=== PATIENT | female | born 1995 | race Caucasian/White ===

== ENCOUNTER 2019-11-17 13:12 | Outpatient (CLI) | payer OTHER, MEDICAID, SELFPAY | END 2019-11-17 13:13 | disposition home or self-care (01) | PROVIDERS: PCP Family Medicine Adolescent Medicine; Visit Provider Obstetrics & Gynecology | DX: R10.2 Pelvic and perineal pain (principal) | CPT/HCPCS: 36415; 86850; 86900; 86901 ==

== ENCOUNTER 2019-11-24 00:18 | Outpatient (CLI) | payer OTHER, MEDICAID, SELFPAY ==
[2019-11-24 19:01] LABS: SARS-CoV-2 RNA PCR Negative
== END 2019-11-24 00:19 | disposition home or self-care (01) ==
LOC: ANHCOVIDDT 00:18
PROVIDERS: PCP Family Medicine Adolescent Medicine; Visit Provider Obstetrics & Gynecology
DX: Z01.818 Encounter for other preprocedural examination (principal); Z11.59 Encounter for screening for other viral diseases
CPT/HCPCS: 87635; C9803; U0003

== ENCOUNTER 2019-11-26 02:52 | Day surgery (SDC) | payer OTHER, MEDICAID, SELFPAY ==
[2019-11-11 15:50] VITALS: BMI 32.3
--- NOTE | 2019-11-24 07:40 | PM.IMHP ---
H&P: HPI History of Present Illness Chief complaint: Pelvic Pain, Abnormal Uterine Bleeding Narrative: Leonor Blevins is a 24 year old female who is admitted for diagnostic laparoscopy. She has a known history of endometriosis which was diagnosed 6 years ago laparoscopically. She has been on oral S which has not helped with the typical endometrial complains of pain in irregular bleeding. Risks and benefits of this procedure reviewed including but not exclusive of , aspiration pneumonia, bleeding, transfusion, perforation to bowel, bladder, ureters, or other internal organs. She voiced good understanding. She received the [employer] handout entitled laparoscopy. She asked to proceed Review of Systems Review of Systems: All systems reviewed & are unremarkable except as noted in HPI and below PMFSH Past Medical History Medical History Bilateral ankle fractures Endometriosis Surgical History Surgical History H/O dilation and curettage Family History Family History Other Family history of arthritis Hypertension Social History Social History Smoking status: Never smoker Alcohol intake: never Spiritual care concerns: No Meds Home Medications and Allergies Home Medications Medication Instructions Recorded Confirmed Type elagolix [[place]] 150 mg PO DAILY 11/11/19 11/11/19 History Allergies Allergy/AdvReac Type Severity Reaction Status Date / Time morphine Allergy Severe HIVES Verified 11/11/19 15:52 Penicillins Allergy Severe HIVES Verified 11/11/19 15:52 povidone-iodine Allergy Severe SKIN Verified 11/11/19 15:52 PEELED OFF ; RASH shellfish derived Allergy Severe Anaphylactic Verified 10/25/18 18:58 Shock amoxicillin Allergy Unknown Hives Verified 11/11/19 15:52 Exam Const: General: no acute distress Eyes: General: appearance normal, both eyes and all related structures Neck: Neck: supple and no JVD Thyroid: thyroid normal Resp: Effort & Inspection: normal respiratory effort Auscultation: clear to auscultation bilaterally Cardio: Rate: regular rate Rhythm: regular rhythm GI: Inspection: non-distended GI Palp: Yes Soft to palpation, No Tenderness to palpation present (GI) and No Guarding due to palpation present (GI) Auscultation: normal bowel sounds : General: Yes bladder normal to palpation External Female Exam: normal external appearance Speculum Exam - Vagina: normal vaginal discharge and No vaginal bleeding Speculum Exam - Cervix: nontender Bimanual exam- vagina & uterus: bladder normal to palpation and No Cervical tenderness present OB/external & speculum: No vaginal bleeding Skin: General skin exam: no rashes or lesions noted Extrem: General: normal to inspection and no edema Psych: Mental Status: mental status grossly normal Affect: normal affect Assessment and Plan Additional Plan impression: Pelvic pain with a history of endometriosis Plan: Diagnostic laparoscopy
[2019-11-26] VITALS (11 sets, daily range): BP systolic 99–114; BP diastolic 55–72; PULSE 54–71; RESP 10–20; TEMP 36.1–36.4; O2SAT 95–100; BMI 33.2
--- NOTE | 2019-11-26 06:17 | WPDHPUPDATE1 ---
History and Physical Update Update Date/Time: 11/26/19 06:17 History and Physical has been reviewed, including an updated exam of the patient. There are NO changes in the patient's condition. Risks, benefits, and alternatives have been discussed and questions answered. Patient agrees to proceed with procedure.
[2019-11-26] MEDS: LACTATED RINGERS 1,000 ML 30 ML IV CONT ×2 (10:00→13:00)
[2019-11-26] MEDS: ACETAMINOPHEN 500 MG TABLET 1000 MG PO (10:41)
[2019-11-26] MEDS: KETOROLAC 15 MG/ML VIAL (*BKC) IV PUSH (10:41)
[2019-11-26] MEDS: SCOPOLAMINE 1.5 MG PATCH TRANSDERM (10:45)
--- NOTE | 2019-11-26 10:57 | WPDANESEPPF ---
Anes - Initial Pre Proc Eval Procedure: Operation Date: 11/26/19 11:30 Proposed Procedures p Diagnostic Laparoscopy - Jason Alcaraz MD Date/Time: 11/26/19 10:57 Surgeon: Jason Alcaraz MD Pre Op Diagnosis: Pelvic Pain, Abnormal Uterine Bleeding Patient Data Age: 24 Gender: F Height: 5 ft 4 in Weight: 87.8 kg Last Vital Signs Temp 36.4 C 11/26/19 10:34 Pulse 71 11/26/19 10:34 Resp 20 11/26/19 10:34 BP 114/72 11/26/19 10:34 Pulse Ox 100 11/26/19 10:34 Allergies Allergy/AdvReac Type Severity Reaction Status Date / Time morphine Allergy Severe HIVES Verified 11/26/19 10:32 Penicillins Allergy Severe HIVES Verified 11/26/19 10:32 povidone-iodine Allergy Severe SKIN Verified 11/26/19 10:32 PEELED OFF ; RASH shellfish derived Allergy Severe Anaphylactic Verified 11/26/19 10:32 Shock amoxicillin Allergy Unknown Hives Verified 11/26/19 10:32 Home Medications Medication Instructions Recorded Confirmed Type elagolix [Orilissa] 150 mg PO DAILY 11/11/19 11/26/19 History hydrocodone-acetaminophen [[place]] 1 tablet PO Q4H PRN #20 tablet 11/26/19 Rx Patient hx anesthesia problems: other (motion sickness) Family hx anesthesia problems: none PMFSH Past Medical History Medical History (Updated 11/26/19 @ 10:57 by Zaki Del Cid MD) Bilateral ankle fractures Endometriosis Hx of migraines Surgical History Surgical History H/O dilation and curettage Family History Family History Other Family history of arthritis Hypertension Social History Social History Smoking status: Never smoker Alcohol intake: never Spiritual care concerns: No Anes - Eval Final PreProcedure Day of Procedure 11/26/19 10:57 Patient weight: obese Heart: regular rate and rhythm Lungs: clear to auscultation Airway: Mallampati scale class II Neurological: alert and oriented Last oral intake: >/= 8 hours ASA classification: II Emergent: no Anesthetic plan: proceed Anesthesia type and monitoring: general ETT and standard monitoring Informed Consent: The patient's anesthetic plan and its attendant risks and benefits were discussed with the patient/family/POA. Questions were solicited and answers provided to the satisfaction of the patient/family/POA.
--- NOTE | 2019-11-26 10:58 | WPDANESEPPF ---
Anes - Initial Pre Proc Eval Procedure: Operation Date: 11/26/19 11:30 Proposed Procedures p Diagnostic Laparoscopy - Jason Alcaraz MD Date/Time: 11/26/19 10:58 Surgeon: Jason Alcaraz MD Pre Op Diagnosis: Pelvic Pain, Abnormal Uterine Bleeding Patient Data Age: 24 Gender: F Height: 5 ft 4 in Weight: 87.8 kg Last Vital Signs Temp 36.4 C 11/26/19 10:34 Pulse 71 11/26/19 10:34 Resp 20 11/26/19 10:34 BP 114/72 11/26/19 10:34 Pulse Ox 100 11/26/19 10:34 Allergies Allergy/AdvReac Type Severity Reaction Status Date / Time morphine Allergy Severe HIVES Verified 11/26/19 10:32 Penicillins Allergy Severe HIVES Verified 11/26/19 10:32 povidone-iodine Allergy Severe SKIN Verified 11/26/19 10:32 PEELED OFF ; RASH shellfish derived Allergy Severe Anaphylactic Verified 11/26/19 10:32 Shock amoxicillin Allergy Unknown Hives Verified 11/26/19 10:32 Home Medications Medication Instructions Recorded Confirmed Type elagolix [[place]il[place]] 150 mg PO DAILY 11/11/19 11/26/19 History hydrocodone-acetaminophen [[place]] 1 tablet PO Q4H PRN #20 tablet 11/26/19 Rx Patient hx anesthesia problems: other (motion sickness) Family hx anesthesia problems: none PMFSH Past Medical History Medical History (Updated 11/26/19 @ 10:57 by Zaki Del Cid MD) Bilateral ankle fractures Endometriosis Hx of migraines Surgical History Surgical History H/O dilation and curettage Family History Family History Other Family history of arthritis Hypertension Social History Social History Smoking status: Never smoker Alcohol intake: never Spiritual care concerns: No Anes - Eval Final PreProcedure Day of Procedure 11/26/19 10:58 Patient weight: obese Heart: regular rate and rhythm Lungs: clear to auscultation Airway: Mallampati scale class II Neurological: alert and oriented Last oral intake: >/= 8 hours ASA classification: II Emergent: no Anesthetic plan: proceed Anesthesia type and monitoring: general ETT and standard monitoring Informed Consent: The patient's anesthetic plan and its attendant risks and benefits were discussed with the patient/family/POA. Questions were solicited and answers provided to the satisfaction of the patient/family/POA.
--- NOTE | 2019-11-26 11:46 | PM.PROC ---
Procedure Note - Detailed Date of procedure: 11/26/19 Pre-op diagnosis: Pelvic Pain, Abnormal Uterine Bleeding Surgeon: Jason Alcaraz MD Postop diagnosis: Pelvic pain/ bilateral ovarian cysts Procedure: Laparoscopy /destruction bilateral ovarian cysts Anesthesia: General endotracheal EBL: 5Cc Complications: None Findings: Normal-appearing uterus tubes. Bilateral simple ovarian cysts. Normal-appearing appendix and gallbladder Description of procedure: The patient was prepped and draped in the normal sterile fashion and placed in the dorsal lithotomy position. Under excellent general trach anesthesia weighted speculum placed in the posterior fornix of vagina. Anterior lip of the cervix was grasped with single-tooth tenaculum. The Gross's cannula was inserted to the cervix and attached to the single-tooth to be used later for uterine manipulation. After emptying the bladder of clear urine, the remainder the instruments removed. Gloves were changed. An infra full umbilical cyst incision was made. The Veress needle passed in the abdomen. The abdomen was filled with CO2 gas [id number]. The 5mm trocar was advanced under direct visualization assuring no injury. The patient was placed in Trendelenburg. A suprapubic incision made and the 5mm trocar advanced under direct visualization assuring no injury. The above findings were seen the ovarian cyst were then opened in linear fashion bilaterally with monopolar cautery at 35 w per 2nd. Irrigation was undertaken until clear. Photo documentation was undertaken. The lower site removed. The gas removed from the abdomen. The upper site. The incisions closed with 4 O Monocryl and glue. The instruments removed from the vagina. The patient was awakened. All sponge, needle, instrument counts were correct. There were no immediate complications
--- NOTE | 2019-11-26 13:12 | SUR.PHASEI ---
PT AWAKE AND ALERT. STATES PAIN IS MUCH BETTER NOW AT 5/10 AND TOLERABLE. READY TO GO TO [facility].
== END 2019-11-26 13:45 | disposition home or self-care (01) ==
PROVIDERS: PCP Family Medicine Adolescent Medicine; Visit Provider Obstetrics & Gynecology
PROC: (CPT 49320; principal; 2019-11-26 11:30)
DX: N83.202 Unspecified ovarian cyst, left side (principal); N83.201 Unspecified ovarian cyst, right side; Z87.42 Personal history of other diseases of the female genital tract; E66.9 Obesity, unspecified; Z68.32 Body mass index [BMI] 32.0-32.9, adult; Z79.899 Other long term (current) drug therapy
CPT/HCPCS: 58679; 49322; A9270; J0330; J1100; J1885; J2250; J2405; J2704; J3010; J7030; J7120

== ENCOUNTER 2020-08-13 17:38 | Observation (INO) | payer OTHER, SELFPAY ==
[2020-08-13 18:04] VITALS: BMI 33.8
--- NOTE | 2020-08-13 19:42 | OBADM ---
This patient, Leonor Blevins, admitted to the OB room Labor/Delivery/Recovery 106 for observation. Patient/family oriented to hospital policies and general routines including ID bracelet, bed and alarms, visiting hours, pain management, procedures, bathroom and other care routines, personal items, smoking policy, room service/diet, and visiting hours. Patient/Family are encouraged to report perceived risks to care and to ask questions if they do not understand what they are told or what they should do.
--- NOTE | 2020-08-16 11:15 | PM.OBTRLD ---
OB - Triage/Final Diagnosis Visit Information Reason for evaluation: threatened labor Comments/Additional reasons for admission: I have assessed the risk for this patient, Leonor Blevins, and determined that she would benefit from observation care.
== END 2020-08-13 19:38 | disposition home or self-care (01) ==
PROVIDERS: Admitting Provider Obstetrics & Gynecology; PCP Family Medicine Adolescent Medicine; Visit Provider Obstetrics & Gynecology
DX: O47.9 False labor, unspecified (principal); Z3A.00 Weeks of gestation of pregnancy not specified
CPT/HCPCS: G0378; G0379

== ENCOUNTER 2020-08-21 16:34 | Observation (INO) | payer OTHER, SELFPAY ==
--- NOTE | 2020-08-22 07:39 | P.PNOB_ITS ---
OB - Triage/Final Diagnosis Visit Information Date of evaluation: 08/21/20 Reason for evaluation: threatened labor Comments/Additional reasons for admission: I have assessed the risk for this patient, Leonor Blevins, and determined that she would benefit from ob servation care.
== END 2020-08-21 18:12 | disposition home or self-care (01) ==
PROVIDERS: Admitting Provider Obstetrics & Gynecology; PCP Family Medicine Adolescent Medicine; Visit Provider Obstetrics & Gynecology
DX: O47.1 False labor at or after 37 completed weeks of gestation (principal); Z3A.38 38 weeks gestation of pregnancy
CPT/HCPCS: 84112; G0378; G0379

== ENCOUNTER 2020-08-24 06:23 | Inpatient (IN) | payer OTHER, SELFPAY ==
[2020-08-24] VITALS (150 sets, daily range): BP systolic 82–130; BP diastolic 51–100; PULSE 58–111; RESP 14–15; TEMP 36.3–37.2; O2SAT 82–100; BMI 33.7
[2020-08-24 07:08] LABS: Basophils Percent Auto 0.4 % (0.2-1.2); Eosinophils Absolute Auto 0.1 K/mm3 (0-0.3); Eosinophils Percent Auto 0.9 % (0-4.4); Hematocrit 37.5 % (37.0-47.0); Hemoglobin 12.7 g/dL (12.0-15.0); Immature Granulocyte Absolute 0.12 K/mm3 (0.00-0.031); Immature Granulocyte Percent A 1.5 % (0-0.5); Lymphocytes Percent Auto 18.3 % (18.3-44.2); Mean Corpuscular HGB Conc 33.9 g/dl (32-36); Mean Corpuscular Hemoglobin 28.5 pg (26-34); Mean Corpuscular Volume 84.1 fl (80-100); Mean Platelet Volume 11.2 fl (7.4-10.4); Monocytes Absolute Auto 0.6 K/mm3 (0.1-0.6); Monocytes Percent Auto 7.4 % (2.6-8.5); Neutrophils Absolute Auto 5.9 K/mm3 (1.3-6.7); Neutrophils Percent Auto 71.5 % (45.5-73.1); Platelet Count Result 170 k/mm3 (150-375); Red Blood Count 4.46 M/mm3 (4.2-5.4); Red Cell Distribution Width 13.1 % (11.5-14.5); White Blood Count 8.2 K/mm3 (4.5-10.0)
[2020-08-24] MEDS: LACTATED RINGERS 1,000 ML 125 ML IV CONT ×3 (07:12→10:39)
[2020-08-24] MEDS: OXYTOCIN 30 UNITS/NS 500 ML 30 UNITS/500 ML BAG IV CONT (07:35)
--- NOTE | 2020-08-24 07:43 | PM.IMHP ---
H&P: HPI History of Present Illness Date/Time: 08/24/20 07:43 G3 P 101 whose last menstrual period was unknown EDC of 08/30/2020 confirmed by 8 week ultrasound presents at 39 weeks gestation for induction labor. Cervix was favorable risks and benefits reviewed she is negative for group B strep Chief Complaint: mil Review of Systems Review of Systems: All systems reviewed & are unremarkable except as noted in HPI and below PMFSH Past Medical History Medical History Bilateral ankle fractures Endometriosis Hx of migraines Surgical History Surgical History H/O dilation and curettage Family History Family History Grandparent Family history of arthritis Father Hypertension Social History Social History Smoking status: Never smoker Alcohol intake: never Substance use: never Gender identity (if verbalized by the patient): Female Spiritual care concerns: No Meds Home Medications and Allergies Home Medications Medication Instructions Recorded Confirmed Type PNV cmb#95-ferrous fumarate-FA 1 tablet PO DAILY 08/03/20 08/24/20 History [] labetalol 100 mg PO BID 08/24/20 08/24/20 History Allergies Allergy/AdvReac Type Severity Reaction Status Date / Time morphine Allergy Severe HIVES Verified 11/26/19 10:32 Penicillins Allergy Severe HIVES Verified 11/26/19 10:32 povidone-iodine Allergy Severe SKIN Verified 11/26/19 10:32 PEELED OFF ; RASH shellfish derived Allergy Severe Anaphylactic Verified 11/26/19 10:32 Shock amoxicillin Allergy Unknown Hives Verified 11/26/19 10:32 Vital Signs Vital Signs - 24 hr 08/24/20 07:12 08/24/20 07:15 08/24/20 07:30 Pulse Rate 77 71 75 Blood Pressure 125/78 116/65 124/76 Exam Const: General: no acute distress Eyes: General: appearance normal, both eyes and all related structures Neck: Neck: supple and no JVD Thyroid: thyroid normal Resp: Effort & Inspection: normal respiratory effort Auscultation: clear to auscultation bilaterally Cardio: Rate: regular rate Rhythm: regular rhythm GI: Inspection: non-distended GI Palp: Yes Soft to palpation, No Tenderness to palpation present (GI) and No Guarding due to palpation present (GI) Auscultation: normal bowel sounds : General: Yes other ( cervix 3/75/ -1. AROM mec. FHTs reassuring) Skin: General skin exam: no rashes or lesions noted Extrem: General: normal to inspection and no edema Psych: Mental Status: mental status grossly normal Affect: normal affect H&P: Results Labs Labs: Short CBC 08/24/20 Range/Units 06:57 WBC 8.2 (4.5-10.0) K/mm3 Hgb 12.7 (12.0-15.0) g/dL Hct 37.5 (37.0-47.0) % Plt Count 170 (150-375) k/mm3 Assessment and Plan Additional Plan impression: Term with favorable cervix and meconium Plan: Medical lateral labor. Spontaneous vaginal delivery is expected. Chief Business Development Officer will be made aware of meconium-stained fluid. She has an epidural candidate
--- NOTE | 2020-08-24 08:21 | LDADM ---
This patient, Leonor Blevins, was admitted to Labor/Delivery/Recovery 104 on 08/24/20 at 06:23. Plans for labor, pain management and were discussed with patient. Patient/family oriented to hospital policies and general routines including ID bracelet, bed and alarms, visiting hours, pain management, procedures, bathroom and other care routines, personal items, smoking policy, room service/diet and guest tray routines, security routines, and visiting hours. Patient/Family are encouraged to report perceived risks to care and to ask questions if they do not understand what they are told or what they should do. See [facility] for further documentation.
[2020-08-24 08:52] LABS: Rapid Plasma Reagin Non-Reactive (NonReactive)
--- NOTE | 2020-08-24 09:45 | WPDANESEPP ---
Anes - Eval Pre Procedure Procedure: Labor Epidural Date/Time: 08/24/20 09:45 Pre Op Diagnosis: iol Patient Data Age: 25 Gender: F Height: 1.63 m Weight: 89 kg Last Vital Signs Temp 36.7 C 08/24/20 09:14 Pulse 76 08/24/20 09:42 BP 117/70 08/24/20 09:42 Pulse Ox 98 08/24/20 09:43 Allergies Allergy/AdvReac Type Severity Reaction Status Date / Time morphine Allergy Severe HIVES Verified 11/26/19 10:32 Penicillins Allergy Severe HIVES Verified 11/26/19 10:32 povidone-iodine Allergy Severe SKIN Verified 11/26/19 10:32 PEELED OFF ; RASH shellfish derived Allergy Severe Anaphylactic Verified 11/26/19 10:32 Shock amoxicillin Allergy Unknown Hives Verified 11/26/19 10:32 Home Medications Medication Instructions Recorded Confirmed Type PNV cmb#95-ferrous fumarate-FA 1 tablet PO DAILY 08/03/20 08/24/20 History [] labetalol 100 mg PO BID 08/24/20 08/24/20 History Laboratory Tests 08/24/20 08/24/20 06:57 06:57 WBC 8.2 K/mm3 K/mm3 (4.5-10.0) RBC 4.46 M/mm3 M/mm3 (4.2-5.4) Hgb 12.7 g/dL g/dL (12.0-15.0) Hct 37.5 % % (37.0-47.0) MCV 84.1 fl fl (80-100) MCH 28.5 pg pg (26-34) MCHC 33.9 g/dl g/dl (32-36) RDW 13.1 % % (11.5-14.5) Plt Count 170 k/mm3 k/mm3 (150-375) MPV 11.2 fl H fl (7.4-10.4) Immature Gran % (Auto) 1.5 % H % (0-0.5) Neut % (Auto) 71.5 % % (45.5-73.1) Lymph % (Auto) 18.3 % % (18.3-44.2) [place] % (Auto) 7.4 % % (2.6-8.5) Eos % (Auto) 0.9 % % (0-4.4) Baso % (Auto) 0.4 % % (0.2-1.2) Lymph # (Auto) 1.50 K/mm3 K/mm3 (0.9-3.2) [place] # (Auto) 0.6 K/mm3 K/mm3 (0.1-0.6) Eos # (Auto) 0.1 K/mm3 K/mm3 (0-0.3) Baso # (Auto) 0.0 K/mm3 K/mm3 (0.0-0.1) Abs Immat Gran (auto) 0.12 K/mm3 H K/mm3 (0.00-0.031) Absolute Neuts (auto) 5.9 K/mm3 K/mm3 (1.3-6.7) Absolute Nucleated RBC 0.0 K/mm3 K/mm3 (0.0-0.012) Nucleated RBC % 0.0 % % (0.0-0.2) RPR Non-reactive (NonReactive) Patient hx anesthesia problems: none Family hx anesthesia problems: none PMFSH Past Medical History Medical History Bilateral ankle fractures Endometriosis Hx of migraines Surgical History Surgical History H/O dilation and curettage Family History Family History Grandparent Family history of arthritis Father Hypertension Social History Social History Smoking status: Never smoker Alcohol intake: never Substance use: never Gender identity (if verbalized by the patient): Female Spiritual care concerns: No Exam Day of Procedure 08/24/20 09:45 Patient weight: obese Heart: regular rate and rhythm Lungs: normal air movement Airway: Mallampati scale class II Neurological: alert and oriented
[2020-08-24] MEDS: SODIUM CHLORIDE 0.9% IV 300 ML 600 ML I-UTERINE (11:34)
--- NOTE | 2020-08-24 11:36 | PM.OBPNVD ---
OB - PN: Subj Subjective Date/time seen: 08/24/20 11:36 cx 5 by rn exam few varibles/iupc to be placed with amnioinfusion OB - PN: Obj Data Labs CBC & Chem 7: 08/24/20 06:57 Labs: Laboratory Results - last 24 hr 08/24/20 08/24/20 08/24/20 06:57 06:57 06:57 WBC 8.2 RBC 4.46 Hgb 12.7 Hct 37.5 MCV 84.1 MCH 28.5 MCHC 33.9 RDW 13.1 Plt Count 170 MPV 11.2 H Immature Gran % (Auto) 1.5 H Neut % (Auto) 71.5 Lymph % (Auto) 18.3 [place] % (Auto) 7.4 Eos % (Auto) 0.9 Baso % (Auto) 0.4 Lymph # (Auto) 1.50 [place] # (Auto) 0.6 Eos # (Auto) 0.1 Baso # (Auto) 0.0 Abs Immat Gran (auto) 0.12 H Absolute Neuts (auto) 5.9 Absolute Nucleated RBC 0.0 Nucleated RBC % 0.0 RPR Non-reactive Blood Type AB Positive Antibody Screen Negative OB - PN A/P Time Spent With Patient Time: Total time spent is greater than 50% in coordination of care (as documented) at patient's floor/unit and/or counseling patient:
--- NOTE | 2020-08-24 15:16 | PM.OBPRVD ---
OB - Delivery Note Procedure Delivery date: 08/24/20 Procedure: mil Induction method: AROM Delivery augmentation: pitocin Delivery monitor: external FHT Route of delivery: Episiotomy description: None Laceration Description: None Specimen: No Quantitative Blood Loss (ml): 58 Anesthesia type: Epidural Disposition: floor Baby Date of : 08/24/20 Time of : 15:08 Weeks of gestation at delivery: 39 Infant gender: Female presentation: vertex position: Right Occiput Anterior cord vessel description: 3 Vessels score one minute: 9 score five minutes: 9
[2020-08-24] MEDS: OXYTOCIN 30 UNITS/NS 500 ML 30 UNITS/500 ML BAG 125 UNITS IV CONT (15:47)
[2020-08-24] MEDS: IBUPROFEN 600 MG TABLET (16:13)
[2020-08-25 04:00] VITALS: BP 108/70; PULSE 76; RESP 14; TEMP 37.1; O2SAT 98
[2020-08-25] MEDS: IBUPROFEN 600 MG TABLET PO (05:05)
[2020-08-25 05:54] LABS: Hematocrit 37.3 % (37.0-47.0); Hemoglobin 12.3 g/dL (12.0-15.0)
--- NOTE | 2020-08-25 08:24 | PM.OBPNVD ---
OB - PN: Subj Subjective Date/time seen: 08/25/20 08:25 Narrative: Pain OK. Would like to go home. OB - PN: Obj Data Labs CBC & Chem 7: 08/25/20 05:13 Labs: Laboratory Results - last 24 hr 08/24/20 08/24/20 08/25/20 06:57 06:57 05:13 Hgb 12.3 Hct 37.3 RPR Non-reactive Blood Type AB Positive Antibody Screen Negative OB - PN A/P Plan Comments: A: PPD#1, doing well. P: Home to f/u 6 weeks. Exam Psych: Other: AVSS ABD soft, nontender, fundus firm EXT nontender
--- NOTE | 2020-08-25 08:25 | PM.OBDSVD ---
DS: Admitting Diagnosis Admitting Diagnosis Admitting Diagnosis: IUP at term DS: Discharge Diagnosis Discharge Diagnosis (1) (normal spontaneous vaginal delivery): Code(s): O80 - Encounter for full-term uncomplicated delivery Status: Acute OB - DS: Summary OB Procedures : None OB Procedures Intrapartum: Spontaneous Vag Delivery OB Procedures: : None Time Spent with Patient Time attestation: Total time spent providing and/or coordinating discharge services: DS: Data Data Completed and Pending Labs on day of discharge: Labs from last 24 hours 08/25/20 08/24/20 08/24/20 05:13 06:57 06:57 Hgb 12.3 Hct 37.3 RPR Non-reactive Blood Type AB Positive Antibody Screen Negative Discharge Plan Discharge Attending physician on discharge: Jason Alcaraz Discharging Clinician: Don Martinez Patient Disposition: Home, Self-Care Activity: pelvic rest Diet: regular Discharge Instructions: Call or return if temperature above 100.4? F, increased abdominal pain, increased vaginal bleeding or any new problems. Stand Alone Forms: General Discharge Information Follow-up/Referrals: Jason Alcaraz MD [Physician] - 6 Weeks Discharge Medications: New ibuprofen 600 mg tablet 600 mg PO Q6H PRN (Reason: cramps) Qty: 30 RF: 0 No Action PNV cmb#95-ferrous fumarate-FA [] 28 mg iron- 800 mcg Tablet 1 tablet PO DAILY RF: 0 labetalol 100 mg tablet 100 mg PO BID RF: 0 Date of admission: 08/24/20 06:23 Primary Care Provider: Robles Abel Admitting Provider: Jason Alcaraz Attending physician on admission: Jason Alcaraz Condition: Stable
[2020-08-25 08:30] VITALS: BP 108/62; PULSE 85; RESP 14; TEMP 36.6; O2SAT 98
[2020-08-25] MEDS: ACETAMINOPHEN 325 MG TABLET 650 MG PO (09:15)
[2020-08-25] MEDS: MULTIVIT/MIN/PREN/FOL AC/IRON TABLET 1 TAB PO (09:15)
--- NOTE | 2020-08-25 09:15 | PC.NURSE ---
Consult with pt., mother reports this is 2nd child and 1st to breastfeed. Mother states is latching eagerly without difficulties or discomfort. Pt.'s mother is at bedside assisting with feeding. Reviewed feeding cues, frequencies, duration of feedings, feeding elimination flow sheet, and signs of adequate intake. Nipple care reviewed. Instructed mother to call out for RN assistance if she is unable to latch infant for feeding or she has discomfort with nursing. Instructed feeding should be initiated three hours from start of last feeding or if feeding cues are noted before. Mother voiced understanding of information shared. Mother requested a hand pump for home use. Kit provided and demonstrated hand pump use.
[2020-08-25] MEDS: TETANUS,DIPHTHERIA,AC PERTUSSIS ADULT (0.5 ML) BOOSTRIX IM (10:53)
[2020-08-25] MEDS: MEASLES,MUMPS,RUBELLA VACCINE 0.5 ML VIAL SUB-Q (10:54)
--- NOTE | 2020-08-25 11:05 | PC.NURSE ---
Patient instructed on viewing the discharge video Mother & Baby Care, The First Two Weeks . Patient was given the opportunity and encouraged to ask questions. Patient verbalized understanding of information shared and has been given the mother/baby guide for home reference.
[2020-08-25 12:10] VITALS: BP 107/57; PULSE 85; RESP 16; TEMP 36.8; O2SAT 97
--- NOTE | 2020-08-25 13:03 | WPDANLDPN2 ---
Anes-Prog Note L&D Date/Time: 08/25/20 13:03 Comfortable throughout: labor and delivery Neuraxial method: epidural Epidural/Spinal procedure site: clean & non-tender Neuro status: Neuro function grossly intact. Cardiovascular status: normal Respiratory status: normal Airway patency: baseline Mental status: baseline Post-Op hydration status: normal Vital Signs: Last Vital Signs Temp 36.6 C 08/25/20 08:30 Pulse 85 08/25/20 08:30 Resp 14 08/25/20 08:30 BP 108/62 08/25/20 08:30 Pulse Ox 98 08/25/20 08:30 Pain score (VAS): 0 I/O: Intake & Output 08/24/20 08/25/20 08/25/20 23:59 07:59 15:59 Intake Total 600 Output Total 1145 Balance -545 Post-procedural complaints: none Patient feedback: Patient satisfied with anesthetic care.
--- NOTE | 2020-08-25 15:31 | PC.NURSE ---
Attempt to observe feeding three times this day requesting mother call out next feeding.
[2020-08-26 11:33] VITALS: BP 123/73; PULSE 80; RESP 20; TEMP 36.7; O2SAT 100
== END 2020-08-25 17:05 | disposition home or self-care (01) | DRG 560 ==
LOC: ANHOB2 08-25 09:34 → ANHLDR 08-28 08:03 → ANHOB2 08-28 08:03
PROVIDERS: Admitting Provider Obstetrics & Gynecology; PCP Family Medicine Adolescent Medicine; Visit Provider Obstetrics & Gynecology
DX: O77.0 Labor and delivery complicated by meconium in amniotic fluid (principal); O76 Abnormality in fetal heart rate and rhythm complicating labor and delivery; Z3A.39 39 weeks gestation of pregnancy; Z37.0 Single live birth
CPT/HCPCS: 36415; 85014; 85018; 85025; 86592; 86850; 86900; 86901; 90710; 90715; A9270; J2590; J2795; J7030; J7120

== ENCOUNTER 2020-12-27 12:47 | Emergency (ER) | payer OTHER, SELFPAY ==
--- NOTE | ~2020-12-27 | XR_ITS ---
EXAMINATION: XR knee RT 3V DATE: 12/27/2020 14:05 INDICATION: Right knee pain. TECHNIQUE: 4 views of right knee were obtained. COMPARISON: None. FINDINGS: Bone alignment is normal. No fracture. Joint spaces are well maintained. There is no knee j oint effusion. IMPRESSION: 1. Normal right knee. Reviewed, dictated and finalized at location B. IMPRESSION: 1. Normal right knee.
[2020-12-27 13:36] VITALS: BP 113/70; PULSE 72; RESP 20; TEMP 36.4; O2SAT 97
--- NOTE | 2020-12-27 13:37 | ED.GENADULT ---
HPI - General Adult General Chief complaint: Extremity Injury, Lower Stated complaint: R leg pain Source: patient Mode of arrival: wheelchair Limitations: no limitations History of Present Illness HPI narrative: Leonor a 25F with a PMH of endometriosis that presented to the ED with right knee pain. She fell down 7 stairs and had immediate pain just below her knee on the anterior side. She did not hit her head or neck and there was no LOC. She had no other injuries. Related Data Home Medications Medication Instructions Recorded Confirmed PNV cmb#95-ferrous fumarate-FA 1 tablet PO DAILY 08/03/20 08/24/20 [] Allergies Allergy/AdvReac Type Severity Reaction Status Date / Time morphine Allergy Severe HIVES Verified 11/26/19 10:32 Penicillins Allergy Severe HIVES Verified 11/26/19 10:32 povidone-iodine Allergy Severe SKIN Verified 11/26/19 10:32 PEELED OFF ; RASH shellfish derived Allergy Severe Anaphylactic Verified 11/26/19 10:32 Shock amoxicillin Allergy Unknown Hives Verified 11/26/19 10:32 Review of Systems Constitutional: Constitutional: Reports no additional constitutional complaints Eyes: Eyes: Reports no additional eye complaints ENT: Reports system reviewed and no additional complaints, except as documented Cardiovascular: Cardiovascular: Reports no additional cardiovascular complaints Respiratory: Respiratory: Reports no additional respiratory complaints Gastrointestinal: Gastrointestinal: Reports no additional gastrointestinal complaints Genitourinary: Genitourinary: Reports no additional female genitourinary complaints Musculoskeletal: Musculoskeletal: Reports as per HPI Integumentary/Breasts: Skin/Breast: Reports system reviewed and no additional complaints, except as docu Neurologic: Reports system reviewed and no additional complaints, except as documented Psychiatric: Psychiatric: Reports no additional psychiatric complaints Endocrine: Endocrine: Reports no additional endocrine complaints Hematologic/Lymphatic: Hematologic/Lymphatic: Reports no additional hematologic/lymphatic complaints Allergic/Immunologic: Allergic/Immunologic: Reports no additional allergic/immunologic complaints [facility] Past Medical History Medical History Bilateral ankle fractures Endometriosis Hx of migraines Surgical History Surgical History H/O dilation and curettage Family History Family History Grandparent Family history of arthritis Father Hypertension Social History Social History Smoking status: Never smoker Alcohol intake: never Substance use: never Gender identity (if verbalized by the patient): Female Spiritual care concerns: No Exam Const: General: no acute distress and alert Orientation/consciousness: patient oriented x3 Limitations: No altered mental status HENMT: Head: normal to inspection Mouth: Yes Normal oral and palatal mucosa present Eyes: Conjunctivae: conjunctivae normal Pupils: Equal, round and reactive pupils present Neck: Neck: normal visual inspection Chest: Chest palpation & inspection: normal inspection of the chest Resp: Effort & Inspection: normal respiratory effort Cardio: Rate: regular rate Skin: General skin exam: normal color Rashes: no rashes Neuro: General: patient oriented x3, moves all extremities, no meningeal signs, no focal motor deficits and CN's II-XI intact bilaterally Extrem: Other: Right knee had no varus or valgus laxity. Negative anterior or posterior drawer test. Negative Nina's test. Contusion over tibial plateau that was TTP. Psych: Appearance: grossly normal Mental Status: mental status grossly normal Thought content: Yes Normal thought content present Course Course
[2020-12-27] MEDS: KETOROLAC 30 MG/ML VIAL (*BKC) IM (14:04)
[2020-12-27 14:55] VITALS: BP 105/64; PULSE 68; RESP 20; O2SAT 99
== END 2020-12-27 15:01 | disposition home or self-care (01) ==
PROVIDERS: Emergency Provider Family Medicine; PCP Family Medicine Adolescent Medicine
DX: S80.01XA Contusion of right knee, initial encounter (principal); W10.9XXA Fall (on) (from) unspecified stairs and steps, initial encounter
CPT/HCPCS: 73562; 96372; 99283; J1885

== ENCOUNTER → 2021-01-30 04:21 | Outpatient (CLI) | payer OTHER, SELFPAY ==
[2021-01-30 18:19] LABS: SARS-CoV-2 RNA PCR Negative
== END ==
PROVIDERS: PCP Family Medicine Adolescent Medicine; Visit Provider Physician Assistant
DX: Z02.1 Encounter for pre-employment examination (principal); Z20.822 Contact with and (suspected) exposure to COVID-19
CPT/HCPCS: C9803; U0003; U0005

== ENCOUNTER 2021-05-02 14:57 | Outpatient (CLI) | payer OTHER, SELFPAY ==
[2021-05-02 17:14] LABS: SARS-CoV-2 RNA PCR Positive (Negative)
== END 2021-05-02 14:58 | disposition home or self-care (01) ==
LOC: CHSLAB 14:58
PROVIDERS: PCP Family Medicine Adolescent Medicine; Visit Provider Family Medicine Adolescent Medicine
DX: U07.1 COVID-19 (principal)
CPT/HCPCS: C9803; U0003; U0005

== ENCOUNTER 2021-10-11 10:41 | Emergency (ER) | payer OTHER, SELFPAY ==
[2021-10-11 10:55] VITALS: BP 121/81; PULSE 87; RESP 16; TEMP 36.2; O2SAT 97
--- NOTE | 2021-10-11 11:01 | ED.ANIMALBIT ---
HPI - Animal Bite General Chief Complaint: Animal Bite Stated Complaint: SCRATCHED BY CAT Source: patient and family Mode of arrival: ambulatory Limitations: no limitations History of Present Illness HPI narrative: this is a 26-year-old female that had adopted a cat and the cat bit her on the left ear causing mild laceration to the left ear, the patient is not up-to-date with her tetanus and currently no fever chills currently no bleeding. complaint: animal bite Onset (ago): hour(s) Animal: cat Description of animal: household pet Mechanism: bite Location: head Related Data Allergies Allergy/AdvReac Type Severity Reaction Status Date / Time morphine Allergy Severe HIVES Verified 10/11/21 10:58 Penicillins Allergy Severe HIVES Verified 10/11/21 10:58 povidone-iodine Allergy Severe SKIN Verified 10/11/21 10:58 PEELED OFF ; RASH shellfish derived Allergy Severe Anaphylactic Verified 10/11/21 10:58 Shock amoxicillin Allergy Unknown Hives Verified 10/11/21 10:58 Review of Systems Review of Systems: All systems reviewed & are unremarkable except as noted in HPI and below PMFSH Past Medical History Medical History Bilateral ankle fractures Endometriosis Hx of migraines Surgical History Surgical History H/O dilation and curettage Family History Family History Grandparent Family history of arthritis Father Hypertension Social History Social History Smoking status: Never smoker Alcohol intake: never Substance use: never Gender identity (if verbalized by the patient): Female Spiritual care concerns: No Exam Const: General: healthy appearing, no acute distress and alert Limitations: no limitations HENMT: Head: normal to inspection Other: Superficial laceration to the left ear proximally 2.5cm in length Eyes: Conjunctivae: conjunctivae normal Pupils: Equal, round and reactive pupils present EOM: EOMs intact bilaterally Neck: Neck: normal visual inspection, no lymphadenopathy and no meningeal signs Chest: Chest palpation & inspection: normal inspection of the chest Resp: Effort & Inspection: normal respiratory effort Auscultation: clear to auscultation bilaterally Cardio: Rate: regular rate Rhythm: regular rhythm GI: GI Palp: Yes Soft to palpation Auscultation: normal bowel sounds Skin: General skin exam: normal color Wounds: wounds noted Neuro: General: patient oriented x3 and moves all extremities Extrem: General: normal to inspection Psych: Mental Status: mental status grossly normal Course Course Emergency Course: patient had Dermabond placed to laceration of left ear and updated with her tetanus vaccine. Vital Signs Vital signs: Vital Signs Temperature 36.2 C L 10/11/21 10:55 Pulse Rate 87 10/11/21 10:55 Respiratory Rate 16 10/11/21 10:55 Blood Pressure 121/81 10/11/21 10:55 Pulse Oximetry 97 10/11/21 10:55 Oxygen Delivery Room Air 10/11/21 10:55 Temperature 36.2 C L 10/11/21 10:55 Pulse Rate 87 10/11/21 10:55 Respiratory Rate 16 10/11/21 10:55 Blood Pressure 121/81 10/11/21 10:55 Pulse Oximetry 97 10/11/21 10:55 Oxygen Delivery Room Air 10/11/21 10:55 Procedures Laceration Laceration 1: Date: 10/11/21 Time: 11:04 Site: other ( Here) Side (If applicable): left Size (cm): 2.5 Description: irregular Pre-repair: wound explored and minor debridement ====== Skin Level ====== Skin layer closed with: dermabond ====== Subcutaneous Layer ====== ====== Muscle Layer ====== ====== Tendon Layer ====== Critical Care Time Critical Care Time Critical Care Time: No Discharge Plan Discharge Clinical Impress
[2021-10-11] MEDS: TETANUS,DIPHTHERIA,AC PERTUSSIS ADULT 0.5 ML (ADACEL) IM (11:11)
[2021-10-11 11:16] VITALS: BP 132/86; PULSE 87; RESP 16; TEMP 36.2; O2SAT 98
--- NOTE | 2021-10-11 11:27 | PC.NURSE ---
[facility] animal bite form filled out and faxed.
== END 2021-10-11 11:27 | disposition home or self-care (01) ==
PROVIDERS: Emergency Provider Emergency Medicine; PCP Family Medicine Adolescent Medicine
DX: S01.352A Open bite of left ear, initial encounter (principal); W55.01XA Bitten by cat, initial encounter
CPT/HCPCS: 12001; 90471; 90715; 99283

== ENCOUNTER 2023-05-01 11:32 | Outpatient (CLI) | payer OTHER, SELFPAY ==
--- NOTE | ~2023-05-01 | XR_ITS ---
Left elbow Technique: AP, oblique, and lateral views were obtained. Clinical History: Pain Findings: No acute fracture or dislocation is seen. Osseous alignment is anatomic. Joint spaces are p reserved. There is no displacement of the fat pads, and soft tissues are unremarkable. Impression: Unremarkable radiographs. Reviewed, dictated and finalized at location . NSED MARINE ENGINEER Impression: Unremarkable radiographs.
== END 2023-05-01 11:33 | disposition home or self-care (01) ==
LOC: CHSIMG 11:34
PROVIDERS: PCP Family Medicine Adolescent Medicine; Visit Provider Family Medicine Adolescent Medicine
DX: M25.522 Pain in left elbow (principal)
CPT/HCPCS: 73080

== ENCOUNTER 2023-10-24 22:26 | Emergency (ER) | payer OTHER, SELFPAY ==
--- NOTE | ~2023-10-24 | XR_ITS ---
XR ankle LT min 3V Ordering provider: See Avelar MD History: . FELL ON STAIRS. LEFT ANKLE PAIN. . Comparison: December 28, 2010 FINDINGS: BONES: No acute fracture or dislocation. JOINT SPACES: The ankle mortise is normal. SOFT TISSUES: Normal. IMPRESSION: No acute osseous abnormality left ankle. Reviewed, dictated and finalized at location A.
[2023-10-24 22:30] VITALS: BP 118/75; PULSE 72; RESP 18; TEMP 36.6; O2SAT 99
--- NOTE | 2023-10-24 22:35 | ED.LOWEXIN ---
HPI - Extremity Injury (Lower) General Chief Complaint: Extremity Injury, Lower Stated Complaint: L foot/ankle Injury Time Seen by Provider: 10/24/23 22:31 Source: patient Mode of arrival: ambulatory Limitations: no limitations History of Present Illness HPI Narrative: Patient is a 28-year-old female with no significant past medical history that presents today with a left ankle injury. Patient was walking down some stairs and tripped and fell about 3 stairs. She says she inverted her foot at 1st and then her foot went the other way and her ankle is very painful. She says pain is about a 710. She cannot move it very much. complaint: ankle injury (left) Onset (ago): hour(s) Injury: Left: ankle Type of Injury: blunt, inversion, eversion and hyperextension Place: home Severity: moderate Severity scale (1-10): 6 Relieving factors: nothing Exacerbating factors: weight bearing and movement Context: fall and direct blow Associated symptoms: swelling Other symptoms: none Related Data Home Medications Medication Instructions Recorded Confirmed acetaminophen 325 mg tablet 650 mg PO Q6H PRN Pain, Mild 05/01/23 10/24/23 Allergies Allergy/AdvReac Type Severity Reaction Status Date / Time morphine Allergy Severe HIVES Verified 05/01/23 09:27 Penicillins Allergy Severe HIVES Verified 05/01/23 09:27 povidone-iodine Allergy Severe SKIN Verified 05/01/23 09:27 PEELED OFF ; RASH shellfish derived Allergy Severe Anaphylactic Verified 05/01/23 09:27 Shock amoxicillin Allergy Unknown Hives Verified 05/01/23 09:27 Review of Systems Review of Systems: All systems reviewed & are unremarkable except as noted in HPI and below Constitutional: Constitutional: Reports as per HPI Eyes: Eyes: Reports no additional eye complaints ENT: Reports system reviewed and no additional complaints, except as documented Cardiovascular: Cardiovascular: Reports no additional cardiovascular complaints Respiratory: Respiratory: Reports no additional respiratory complaints Gastrointestinal: Gastrointestinal: Reports no additional gastrointestinal complaints Genitourinary: Genitourinary: Reports no additional female genitourinary complaints Musculoskeletal: Musculoskeletal: Reports arthralgias (left ankle) Integumentary/Breasts: Skin/Breast: Reports system reviewed and no additional complaints, except as docu Neurologic: Reports system reviewed and no additional complaints, except as documented Psychiatric: Psychiatric: Reports no additional psychiatric complaints Endocrine: Endocrine: Reports no additional endocrine complaints Hematologic/Lymphatic: Hematologic/Lymphatic: Reports no additional hematologic/lymphatic complaints Allergic/Immunologic: Allergic/Immunologic: Reports no additional allergic/immunologic complaints PMFSH Past Medical History Medical History Bilateral ankle fractures Endometriosis Hx of migraines Surgical History Surgical History H/O dilation and curettage Family History Family History Grandparent Family history of arthritis Father Hypertension Social History Social History Smoking status: Never smoker Alcohol intake: never Substance use: never Do You Feel Safe in your Home?: Yes Lack of Transportation: No Lack of Food: Never True Current Housing: I Have Housing Concerned About Future Housing: No Difficulty Paying Gas/Electric Bills: No Difficulty Paying for Meds: No Currently Unemployed: No Education: Associate Degree Difficulty w/ Childcare or Family Care: No Gender identity (if verbalized by the patient): Female Spiritual care concerns: No Exam Const: General: healthy appearing Nutritional Appearance: well nourished Orientation/cons
[2023-10-24] MEDS: KETOROLAC (*BKC) 60 MG/2 ML VIAL IM (22:44)
--- NOTE | 2023-10-24 23:00 | PC.NURSE ---
Gel ankle splint placed to left ankle. Patient reports that she has worn one in the past and is familiar with how to put on and take off splint. +csm after applying splint
--- NOTE | 2023-10-24 23:07 | PC.NURSE ---
ER provider at the bedside
== END 2023-10-24 23:24 | disposition home or self-care (01) ==
PROVIDERS: Emergency Provider Family Medicine; PCP Family Medicine Adolescent Medicine
DX: S93.402A Sprain of unspecified ligament of left ankle, initial encounter (principal); W10.9XXA Fall (on) (from) unspecified stairs and steps, initial encounter; Y92.009 Unspecified place in unspecified non-institutional (private) residence as the place of occurrence of the external cause
CPT/HCPCS: 73610; 96372; 99283; J1885; L4350

== ENCOUNTER 2024-09-20 19:21 | Emergency (ER) | payer OTHER, SELFPAY ==
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
[2024-09-20 19:22] VITALS: BP 132/85; PULSE 77; RESP 18; TEMP 36.4; O2SAT 97
--- OUTSIDE RECORDS SUMMARY | 2024-09-20 19:23 | XMS_ITS | Clinical Summary ---
Author Organization [facility] Address [address] [place] [id number] Care Team Providers Care Water/Wastewater Project Engineer Name Role Phone Robles Abel MD Primary Care Provider [phone]- [phone] Allergies Active Allergy Reactions Criticality Noted Date Comments Amoxicillin Unknown 11/04/2023 Iodine Unknown 11/04/2023 Morphine Unknown 11/04/2023 Shellfish-Derived Products Unknown Medications No known medications Social History Tobacco Use Types Packs/Day Years Used Date Smoking Tobacco: Never Assessed Comments No Sex and Gender Information Value Date Recorded Sex Assigned at Not on file Legal Sex Female 9:24 PM CDT Gender Identity Not on file Sexual Orientation Not on file Last Filed Vital Signs Vital Sign Reading Time Taken Comments Blood Pressure 122/63 11/04/2023 9:32 PM CDT Pulse 68 11/04/2023 9:32 PM CDT Temperature 35.9 C (96.7 F) 11/04/2023 9:32 PM CDT Respiratory Rate 22 11/04/2023 9:32 PM CDT Oxygen Saturation 100% 11/04/2023 9:32 PM CDT Inhaled Oxygen Concentration - - Weight 89.8 kg (198 lb) 11/04/2023 9:32 PM CDT Height 160 cm (5' 3 ) 11/04/2023 9:32 PM CDT Body Mass Index 35.07 11/04/2023 9:32 PM CDT Plan of Treatment Health Maintenance Due Date Last Done Comments Cervical Cancer Screening Pap Smear (Age 21 to 29) Every 3 Years 1996 Cervical Cancer Screening 1996 Hepatitis B Vaccines (3 of 3 - 3-dose series) 1996 1996, 1996 Annual Physical 1999 Hepatitis C 2014 COVID-19 Vaccine (2023- season) 2024 DTaP, Tdap and Td Vaccines (3 - Td or Tdap) 10/12/2031 10/11/2021, 08/25/2020, 1996, Additional history exists HPV Vaccines Aged Out No longer eligi ble based on patient's age to complete this topic Meningococcal B Vaccine Aged Out No l onger eligible based on patient's age to complete this topic Meningococcal Vaccine Aged Out No nadira osito eligible based on patient's age to complete this topic Pneumococcal Vaccine: Pediatrics (0 to 5 Years) and At-Risk Patients (6 to 49 Years) Aged Out No longer eligible based on patient's age to complete this topic RSV Immunizations Under 20 Months Aged Out No longer eligible based on patient's age to complete this topic Insurance [facility] Care Teams Water/Wastewater Project Engineer Relationship Specialty Start Date End Date Robles Abel MD [address] [place] [id number] PCP - General FAMILY PRACTICE 11/04/23
--- OUTSIDE RECORDS SUMMARY | 2024-09-20 19:23 | XMS_ITS | Clinical Summary ---
Author Organization [facility] Address [address] [place] [address] Care Team Providers Care Campaign Associate Name Role Phone Robles Abel MD Primary Care Provider + Source Comments [facility],non-owned Affiliates and Associated Physician Practices is amultiple site organization consisting of ambulatory clinics and hospital sitesin [place], [place], [place] and [place]. This disclosure is being madepursuant to the Care Everywhere program and may not contain all information available regarding this patient. Last updated 18.[facility] Allergies Active Allergy Reactions Criticality Noted Date Comments Amoxicillin Urticaria Medium 01/04/2018 Morphine Urticaria Medium 01/04/2018 Shellfish Allergy Unknown 01/04/2018 Medications * Be aware that medications may not be up to date on this document. Alwaysverify current medications with the patient. 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 Gender Identity Not on file Sexual Orientation Not on file Last Filed Vital Signs Vital Sign Reading Time Taken Comments Blood Pressure 118/75 01/05/2018 12:21 AM CDT Pulse 65 01/05/2018 12:24 AM CDT Temperature 36.8 C (98.3 F) 01/04/2018 8:23 PM CDT Respiratory Rate 15 01/04/2018 8:23 PM CDT Oxygen Saturation 99% 01/05/2018 12:24 AM CDT Inhaled Oxygen Concentration - - Weight 72.6 kg (160 lb) 01/04/2018 8:23 PM CDT Height 160 cm (5' 3 ) 01/04/2018 8:23 PM CDT Body Mass Index 28.34 01/04/2018 8:23 PM CDT Plan of Treatment Health Maintenance Due Date Last Done Comments HIV SCREENING 2011 HEPATITIS C SCREENING 03/03/2014 DTAP/TDAP/TD VACCINES (1 - Tdap) 2015 HEPATITIS B VACCINE (1 of 3 - 19+ 3-dose series) 2015 COVID-19 VACCINE (1 - 2023-2 5 season) 2024 DEPRESSION SCREENING 05/12/2024 INFLUENZA VACCINE (Season Ended) 2025 ZOSTER VACCINE (1 of 2) 2046 HIB VACCINE Aged Out No longer eligi ble based on patient's age to complete this topic HPV VACCINE Aged Out No longer eligi ble based on patient's age to complete this topic MENINGOCOCCAL (Group B) VACC INE SHARED DECISION-MAKING Aged Out No longer eligibl e based on patient's age to complete this topic MENINGOCOCCAL GROUPS A/C/Y/W VACCINE Aged Out No longer eligible b ased on patient's age to complete this topic PNEUMOCOCCAL VACCINE Aged Out No long er eligible based on patient's age to complete this topic Insurance [employer] - OUT OF STATE [facility] Care Teams Campaign Associate Relationship Specialty Start Date End Date Robles Abel MD [address] [place] [phone] PCP - General 11/19/17
--- NOTE | 2024-09-20 19:37 | PC.NURSE ---
patient ambulatory to bathroom without difficulty, specimen sent to lab.
[2024-09-20 19:48] LABS: Pregnancy On Board Control Positive; Urine Pregnancy Test Negative
--- OUTSIDE RECORDS SUMMARY | 2024-09-20 20:00 | XMS_ITS | Clinical Summary ---
Author Organization [facility] Address [address] [place] [id number] Care Team Providers Care Supplier Manager Name Role Phone Robles Abel MD Primary Care Provider +1- [phone] Allergies Active Allergy Reactions Criticality Noted Date [...] patient's age to complete this topic Insurance [facility] Care Teams Supplier Manager Relationship Specialty Start Date End Date Robles Abel MD [address] [place] [phone] PCP - General FAMILY PRACTICE 11/04/23
--- OUTSIDE RECORDS SUMMARY | 2024-09-20 20:00 | XMS_ITS | Clinical Summary ---
Author Organization [facility] Address [address] [place] [address] Care Team Providers Care Refined Syrup Operator Name Role Phone Robles Abel MD Primary Care Provider + Source Comments [facility],non-owned Affiliates and Associated Physician Practices is amultiple site organization consisting of ambulatory clinics and hospital sitesin [place], [place], [place] and [place]. This disclosure is being madepursuant to the Care Everywhere program and may not contain all information available regarding this patient. 

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
--- NOTE | 2024-09-20 20:32 | PC.NURSE ---
patient to imaging via wheelchair per teradata solution architect.
--- NOTE | 2024-09-20 21:17 | PC.NURSE ---
ERP Dr. Bauman at patient bedside speaking with her regarding results and plan of care.
[2024-09-20 21:25] VITALS: BP 130/74; PULSE 68; RESP 18; TEMP 36.2; O2SAT 99
== END 2024-09-20 21:26 | disposition home or self-care (01) ==
PROVIDERS: Emergency Provider Emergency Medicine; PCP Family Medicine Adolescent Medicine
DX: M54.50 Low back pain, unspecified (principal); M54.6 Pain in thoracic spine; V43.52XA Car driver injured in collision with other type car in traffic accident, initial encounter
CPT/HCPCS: 72128; 72131; 81025; 99284

== ENCOUNTER 2025-03-31 08:34 | Emergency (ER) | payer OTHER, SELFPAY ==
[2025-03-31 08:48] VITALS: BP 127/82; PULSE 76; RESP 16; TEMP 36.6; O2SAT 100
[2025-03-31 08:55] LABS: EDSTREPNEGPOS1 Negative (Negative)
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
[2025-03-31] MEDS: dexAMETHasone SOD PHOS INJ 10 MG/ML 1 ML VIAL BY MOUTH (09:09)
== END 2025-03-31 09:18 | disposition home or self-care (01) ==
PROVIDERS: Emergency Provider Nurse Practitioner; PCP Family Medicine Adolescent Medicine
DX: J02.9 Acute pharyngitis, unspecified (principal); N80.9 Endometriosis, unspecified
CPT/HCPCS: 87081; 87880; 99213; G0463; J1100